=== PATIENT | female | born 1990 | race Caucasian/White ===

== ENCOUNTER 2021-05-05 08:02 | Emergency (ER) | payer SELFPAY ==
[2021-05-05 09:00] LABS: APPEARANCE, URINE HAZY (CLEAR); BACTERIA, URINE AUTO 1+ (NEGATIVE); BILIRUBIN, URINE AUTO NEGATIVE (NEGATIVE); BLOOD, URINE BLOOD 3+ (NEGATIVE); COLOR, URINE YELLOW (YELLOW); GLUCOSE, URINE (UA) AUTO NEGATIVE (NEGATIVE); KETONE, URINE AUTO NEGATIVE (NEGATIVE); LEUKOCYTE ESTERASE, URINE AUTO 2+ (NEGATIVE); MUCUS, URINE SMALL (NEGATIVE); NITRITE, URINE AUTO NEGATIVE (NEGATIVE); PROTEIN, URINE AUTO NEGATIVE (NEGATIVE); RBC, URINE AUTO 168 /HPF (0-3); SPECIFIC GRAVITY URINE AUTO 1.019 (1.002-1.035); SQUAMOUS EPITHELIAL CELL UR AU 0 /HPF (0-6); UROBILINOGEN, URINE AUTO 0.2 mg/dL (0.0-2.0); WBC, URINE AUTO 7 /HPF (0-3)
[2021-05-05 09:02] LABS: BASO % 0.5 % (0.0-1.0); EOS # 0.1 10^3/uL (0.0-0.5); HEMOGLOBIN 12.5 g/dl (12.0-15.5); LYMPH # 0.9 10^3/uL (1.5-5.0); LYMPH % 14.9 % (24.0-44.0); MEAN CORPUSCULAR HEMOGLOBIN 28.8 pg (27.0-33.0); MEAN CORPUSCULAR HGB CONC 32.1 g/dl (32.0-36.5); MEAN CORPUSCULAR VOLUME 89.9 fl (80.0-96.0); MONO # 0.3 10^3/uL (0.0-0.8); MONO % 4.5 % (2.0-8.0); NEUTROPHILS # 4.8 10^3/uL (1.5-8.5); NEUTROPHILS % 78.9 % (36.0-66.0); PLATELET COUNT, AUTOMATED 170 10^3/uL (150-450); RED BLOOD COUNT 4.34 10^6/uL (4.00-5.40)
[2021-05-05 09:19] LABS: ALBUMIN 3.9 GM/DL (3.2-5.2); ALT/SGPT 20 U/L (12-78); BILIRUBIN,DIRECT 0.3 MG/DL (0.0-0.2); BILIRUBIN,TOTAL 1.4 MG/DL (0.2-1.0); BLOOD UREA NITROGEN 15 MG/DL (7-18); CALCIUM LEVEL 8.8 MG/DL (8.5-10.1); CARBON DIOXIDE LEVEL 22 MEQ/L (21-32); CHLORIDE LEVEL 112 MEQ/L (98-107); GLOMERULAR FILTRATION RATE > 60.0 (>60); GLUCOSE, FASTING 95 MG/DL (70-100); HCG, SERUM QUANTITATIVE 26 MIU/ML; LIPASE 125 U/L (73-393); SODIUM LEVEL 143 MEQ/L (136-145); TOTAL PROTEIN 7.1 GM/DL (6.4-8.2)
[2021-05-05 10:42] LABS: GC DNA AMPLIFICATION NEGATIVE (NEGATIVE)
--- NOTE | 2021-05-05 10:43 | REP ---
INDICATION: , vaginal bleeding COMPARISON: None. TECHNIQUE: Transabdominal and transvaginal 1st trimester obstetrical ultrasound with color Doppler evaluation FINDINGS: Anteverted uterus measures 12.6 x 6.8 x 8.6 cm. The endometrial complex appears thickened and heterogeneous midline collection measures 6.7 x 5.0 x 6.5 cm raising the possibility of decidual reaction as well as hemorrhagic debris. No discrete gestational sac is identified. Maternal ovaries are normal in appearance without torsion. Right ovary measures 3.6 x 3.0 x 2.5 cm (RI 0.39). Left ovary measures 3.2 x 1.6 x 2.1 cm (RI 0.47). No pelvic fluid or adnexal mass lesion. IMPRESSION: Complex area within the mid uterus. No definable gestational sac. Differential diagnosis includes decidual reaction with hemorrhagic debris and spontaneous in progress. Correlation with serial HCG levels recommended. Repeat pelvic ultrasound as necessary. <Electronically signed by Arun Lam > 05/05/21 9939
[2021-05-05 11:47] VITALS: BP 125/62
== END 2021-05-05 11:45 | disposition home or self-care (01) ==
LOC: M ED 08:02
DX: O02.0 Blighted ovum and nonhydatidiform mole (principal); Z3A.12 12 weeks gestation of pregnancy

== ENCOUNTER → 2021-05-08 | Outpatient (CLI) | payer SELFPAY | LOC: M LAB 11:58 | PROVIDERS: ATTEND Physician Assistant Medical | DX: O02.1 Missed abortion (principal) ==

== ENCOUNTER → 2021-05-25 | Outpatient (CLI) | payer SELFPAY | LOC: M PLALAB 09:44 | PROVIDERS: ATTEND Obstetrics & Gynecology | DX: O36.80X0 Pregnancy with inconclusive fetal viability, not applicable or unspecified (principal); Z3A.00 Weeks of gestation of pregnancy not specified ==